=== PATIENT | female | born 1955 | race Caucasian/White ===

== ENCOUNTER 2017-11-04 19:57 | Emergency (ER) | payer OTHER ==
[~2017-11-04] VITALS: Ht 157.5 cm; Wt 52.3 kg
[2017-11-04 20:04] VITALS: BP 154/67; PULSE 71; RESP 16; TEMP 98.4; O2SAT 99
[2017-11-04] MEDS ORDERED: MULTTAB67 PO (20:14)
[2017-11-04] MEDS ORDERED: FAMO1TAB73 PO (20:14)
[2017-11-04] MEDS ORDERED: OMEP20TA93 PO (20:14)
[2017-11-04] MEDS ORDERED: LEVO50TA4 PO (20:14)
[2017-11-04] MEDS ORDERED: SULFAMETHOXAZOLE-TRIMETHOPRIM DS 800-160 MG TAB PO ONE (20:15)
[2017-11-04] MEDS ORDERED: BACT800T5 PO (20:17)
--- NOTE | 2017-11-04 20:18 | PD ---
HPI Chief Complaint: Skin Problem Time Seen by Provider: 20:07 Travel History International Travel<30 days: No Contact w/Intl Traveler<30days: No Traveled to known affect area: No History of Present Illness HPI 62-year-old female presents to the emergency department for evaluation of erythema and pain to the right great toe. Patient states she walked all day Tuesday and Tuesday at [employer] with her grandkids. She noticed the pain after that. She states that it has been worsening despite not doing the walking at this time. Patient denies any fevers or chills. She has history of hypothyroidism, GERD. She denies any history of diabetes or cardiac disease. Exacerbating factors walking and movement. Alleviating factor is rest. Moderate severity. PFSH Past Medical History GERD: Yes Thyroid Disease: Yes Tetanus Vaccination: > 5 Years Influenza Vaccination: Yes Past Surgical History Hysterectomy: Yes Tonsillectomy: Yes Other Surgery: Yes (BREAST BIOPSY) Social History Alcohol Use: Yes (GLASS OF WINE ~3 XWEEK) Tobacco Use: No Substance Use: No Allergies-Medications (Allergen,Severity, Reaction): Coded Allergies: erythromycin base (Verified Allergy, Unknown, 11/04/17) iodine (Verified Allergy, Unknown, 11/04/17) Review of Systems Except as stated in HPI: all other systems reviewed are Neg Physical Exam Narrative GENERAL: Well-nourished, well-developed female patient, ambulatory. Afebrile. SKIN: Focused skin assessment warm/dry. Patient has erythema to the base of the nail at the right great toe. It is tender to palpation. No fluctuance or evidence of paronychia. HEAD: Normocephalic. Atraumatic. EYES: No scleral icterus. No injection or drainage. NECK: Supple, trachea midline. No JVD or lymphadenopathy. CARDIOVASCULAR: Right pedal pulse 2+. RESPIRATORY: No accessory muscle use. MUSCULOSKELETAL: No cyanosis, or edema. Data Data Last Documented VS Vital Signs Date Time Temp Pulse Resp B/P (MAP) Pulse Ox O2 Delivery O2 Flow Rate FiO2 11/04/17 20:04 98.4 71 16 154/67 (96) 99 Orders Orders Sulfamet-Trimeth Ds 800-160 Mg (Bactrim (11/04/17 20:15) MDM Medical Decision Making Medical Screen Exam Complete: Yes Emergency Medical Condition: Yes Medical Record Reviewed: Yes Differential Diagnosis Cellulitis versus paronychia versus abscess versus gout Narrative Course 62-year-old female presents to the emergency department for evaluation erythema and pain to the right great toe. Physical exam is consistent with cellulitis. There is no evidence of fluctuance or paronychia that is amenable to incision and drainage at this time. Patient is continue Epsom water soaks. She will be started on Bactrim. She is given her first dose here. She is to follow up with her primary care physician or return here for any acute worsening of symptoms. The patient was discharged in stable condition with instructions, including return instructions and follow up instructions. Diagnosis Primary Impression: Cellulitis of great toe, right Referrals: Primary Care Physician call for appointment Patient Instructions: Cellulitis (ED), General Instructions Additional Instructions: Take antibiotic as directed until gone. Continue Epsom water soaks. Follow-up with a primary care physician. Return to the emergency department for any acute worsening of symptoms. Med/Other Pt SpecificInfo: Prescription(s) given Scripts Sulfamethoxazole-Trimethoprim (Bactrim DS) 800-160 Mg Tab 1 TAB PO BID for Infection, #20 TAB 0 Refills Prov: Coco Naranjo 11/04/17 Disposition: 01 DISCHARGE HOME Condition: Stable Coco Naranjo Nov 04, 2017 20:17
== END 2017-11-04 20:28 | disposition home or self-care (01) ==
LOC: PHEFT 19:57
DX: L03.031 Cellulitis of right toe (principal); E03.9 Hypothyroidism, unspecified; K21.9 Gastro-esophageal reflux disease without esophagitis; Z88.1 Allergy status to other antibiotic agents
CPT/HCPCS: 99283